=== PATIENT | male | born 1955 | race Caucasian/White ===

== ENCOUNTER 2019-01-11 18:59 | Inpatient (IN) | payer MEDICARE, OTHER ==
[~2019-01-11] VITALS: Ht 172.7 cm; Wt 72.6 kg
[2019-01-11 20:22] LABS: BASOPHILS # (AUTO) 0.1 /CMM (0.0-0.2); BASOPHILS % (AUTO) 1.1 % (0.0-2.0); EOSINOPHILS % (AUTO) 2.3 % (0.0-6.0); HEMATOCRIT 45 % (39-51); HEMOGLOBIN 15.8 g/dL (13.5-17.5); LYMPHOCYTES # (AUTO) 2.1 /CMM (0.8-4.8); LYMPHOCYTES % (AUTO) 28.4 % (20.0-44.0); MEAN CORPUSCULAR HGB CONC 35 g/dl (31.0-36.0); MEAN CORPUSCULAR VOLUME 85 fL (80-96); MONOCYTES # (AUTO) 0.5 /CMM (0.1-1.30); MONOCYTES % (AUTO) 6.5 % (2.0-12.0); NEUTROPHILS # (AUTO) 4.7 /CMM (1.8-8.9); NEUTROPHILS % (AUTO) 61.7 % (43.0-81.0); PLATELET COUNT (AUTO) 211 /CMM (150-450); RED BLOOD CELL COUNT(AUTO) 5.36 MIL/uL (4.5-6.0); WHITE BLOOD COUNT (AUTO) 7.6 K/uL (4.3-11.0)
[2019-01-11 20:29] LABS: APPEARANCE,URINE Clear (CLEAR); BILIRUBIN,URINE Negative (NEGATIVE); BLOOD, URINE Negative Ery/uL (NEGATIVE); COLOR,URINE Yellow (YELLOW); KETONES,URINE Negative (NEGATIVE); LEUKOCYTE ESTERASE ,URINE Negative (NEGATIVE); NITRITE, URINE Negative (NEGATIVE); PROTEIN,URINE Negative (NEGATIVE); UGLUCOSE Negative (NEGATIVE)
--- NOTE | 2019-01-11 20:35 | NUR ---
BIB PRIVATE AMBULANCE FROM HOME ON 5150 HOLD HERE FOR MEDICAL CLEARANCE FOR YELENA ADMISSION. PT ADMITS TO CLAIMS ON 5150 HOLD. DENIES SI/HI NOW. PT AAOX3, VSS. RR EVEN & UNLABORED. CALM & COOPERATIVE. PT SEEN & EVAL'D BY DR. DE LEON. FEDE @ BS & WILL CONT TO MONITOR.
[2019-01-11 20:50] LABS: ALANINE AMINOTRANSFERASE 22 U/L (12-78); ALBUMIN 4.1 g/dL (3.4-5.0); ALCOHOL, BLOOD < 3 mg/dL (0-0); ALKALINE PHOSPHATASE 101 U/L (46-116); ASPARTATE AMINOTRANSFERASE 16 U/L (15-37); BILIRUBIN,DIRECT 0.1 mg/dL (0.0-0.2); BILIRUBIN,TOTAL 0.5 mg/dL (0.2-1.0); CALCIUM, SERUM 9.3 mg/dL (8.5-10.1); CARBON DIOXIDE 27 mmol/L (21-32); CHLORIDE 101 mmol/L (98-107); CREATININE 0.9 mg/dL (0.6-1.3); GLUCOSE 122 mg/dL (74-106); POTASSIUM 3.5 mmol/L (3.5-5.1); SODIUM SERUM 137 mmol/L (136-145); TOTAL PROTEIN, SERUM 8.1 g/dL (6.4-8.2); UREA NITROGEN, BLOOD 16 mg/dL (7-18)
[2019-01-11 20:59] LABS: SALICYLATE < 2.8 mg/dL (2.8-20.0)
[2019-01-11 22:06] LABS: ACETAMINOPHEN 0 ug/ml (10-30)
--- NOTE | 2019-01-11 22:31 | NUR ---
REPORT CALLED TO [facility]. WILL TRANSPORT PT TO ROOM 216-A
[2019-01-11 23:00] VITALS: BP 156/83
[2019-01-11] MEDS ORDERED: MAG HYDROX/AL HYDROX/SIMETH 30 ML UDC PO PRN ×2 (23:30)
[2019-01-11] MEDS ORDERED: MAGNESIUM HYDROXIDE 30 ML UDC PO PRN ×2 (23:30)
[2019-01-11] MEDS ORDERED: BLOOD SUGAR DIAGNOSTIC 1 EACH STRIP IN ONE ×2 (23:30)
[2019-01-11] MEDS ORDERED: ACETAMINOPHEN 325 MG TABLET PO PRN ×2 (23:30)
[2019-01-11] MEDS: LORAZEPAM 0.5 MG TABLET PO PRN (23:51)
[2019-01-12] MEDS ORDERED: INSU3INS8 SQ (00:53)
[2019-01-12] MEDS ORDERED: DOCU-264 PO (00:53)
[2019-01-12] MEDS ORDERED: ARIP20TA4 PO (00:53)
[2019-01-12] MEDS ORDERED: LISI1TAB28 PO (00:53)
[2019-01-12] MEDS ORDERED: TRAZ-214 PO (00:53)
[2019-01-12] MEDS ORDERED: MIRT30TA7 PO (00:53)
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
--- NOTE | 2019-01-12 04:15 | NUR ---
CALLED [facility] AND SPOKE WITH LAVERNE MALLORY TO RECONCILE MEDS.
--- NOTE | 2019-01-12 04:47 | NUR ---
LAVERNE BURNHAM CAME TO UNIT AND ASSESSED PT. PT EXTERNAL MED HISTORY USED FOR MEDICATION RECONCILIATION AND LAVERNE BURNHAM NOTIFIED.
[2019-01-12] MEDS ORDERED: DEXTROSE 50%-WATER 50 ML DISP.SYRIN IV PRN (05:30)
[2019-01-12] MEDS ORDERED: DOCUSATE SODIUM 100 MG CAPSULE PO PRN (05:30)
[2019-01-12 07:43] LABS: ALBUMIN 3.5 g/dL (3.4-5.0); BILIRUBIN,TOTAL 0.7 mg/dL (0.2-1.0); CALCIUM, SERUM 8.7 mg/dL (8.5-10.1); CREATININE 0.8 mg/dL (0.6-1.3); POTASSIUM 3.7 mmol/L (3.5-5.1)
[2019-01-12 07:45] LABS: CHOLESTEROL 181 mg/dL (<200); HDL CHOLESTEROL 37 mg/dL (40-60); LDL 112 mg/dL (0-99); TRIGLYCERIDES 164 mg/dL (30-150)
[2019-01-12 08:00] VITALS: BP 107/52
[2019-01-12] MEDS: BLOOD SUGAR DIAGNOSTIC 1 EACH STRIP IN SCH ×4 (09:15→21:30)
[2019-01-12] MEDS: HYDROCHLOROTHIAZIDE 25 MG TABLET PO SCH (09:53)
[2019-01-12] MEDS: LISINOPRIL (20MG) 20 MG TABLET PO SCH (09:54)
[2019-01-12] MEDS: INSULIN REGULAR, HUMAN 100 UNIT/ML 3 ML VIAL SQ PRN ×3 (10:00→21:29)
[2019-01-12] MEDS: ESCITALOPRAM OXALATE (10 MG) 10 MG TABLET PO SCH (13:30)
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
[2019-01-12 16:00] VITALS: BP 127/73
--- NOTE | 2019-01-12 16:17 | NUR ---
Group Note: SW encouraged pt to participate in group therapy on 01/12/19 discussing social supports. Pt presented in his room on his bed and was unable to participate due to severe depression at this time. Pt is only albanian speaking as well and could not communicate very well with the SW.
--- NOTE | 2019-01-12 19:00 | NUR ---
CALLED DR. VIRAMONTES FOR THE CONSULT
[2019-01-12 20:10] VITALS: BP 105/71
[2019-01-12] MEDS: QUETIAPINE FUMARATE 25 MG TABLET PO SCH (21:30)
[2019-01-12] MEDS: ZOLPIDEM TARTRATE 5 MG TABLET PO PRN (21:30)
[2019-01-13] MEDS: INSULIN REGULAR, HUMAN 100 UNIT/ML 3 ML VIAL SQ PRN ×4 (07:37→21:21)
[2019-01-13] MEDS: BLOOD SUGAR DIAGNOSTIC 1 EACH STRIP IN SCH ×4 (07:40→21:24)
[2019-01-13 08:00] VITALS: BP 134/83
[2019-01-13] MEDS: HYDROCHLOROTHIAZIDE 25 MG TABLET PO SCH (08:35)
[2019-01-13] MEDS: ESCITALOPRAM OXALATE (10 MG) 10 MG TABLET PO SCH (08:36)
[2019-01-13] MEDS: LISINOPRIL (20MG) 20 MG TABLET PO SCH (08:37)
--- NOTE | 2019-01-13 09:19 | NUR ---
INITIAL DISCHARGE PLAN: Per daughter in law Nannette [phone], pt may need SNF placement as pt may not be able to return to the apartment as landlord wishes to evict family due to several complaints regarding pts behaviors. CHRISTY will help form a safe and proper discharge in collaboration with .
--- NOTE | 2019-01-13 09:52 | NUR ---
FAMILY CONTACT: SW received a call from pts daughter in law Nannette [phone] stating that family wishes for SNF placement short term. SW stated that she will inform psychiatrist and will begin referring pt once stable. Nannette agreed.
[2019-01-13 16:00] VITALS: BP 130/80
[2019-01-13 20:37] VITALS: BP 117/74
[2019-01-13 20:42] VITALS: BP 117/74
[2019-01-13] MEDS: QUETIAPINE FUMARATE 25 MG TABLET PO SCH (21:19)
[2019-01-14] MEDS: BLOOD SUGAR DIAGNOSTIC 1 EACH STRIP IN SCH ×4 (07:57→21:23)
[2019-01-14] MEDS: INSULIN REGULAR, HUMAN 100 UNIT/ML 3 ML VIAL SQ PRN ×3 (07:59→21:31)
[2019-01-14 08:00] VITALS: BP 115/56
[2019-01-14] MEDS: LISINOPRIL (20MG) 20 MG TABLET PO SCH (08:15)
[2019-01-14] MEDS: HYDROCHLOROTHIAZIDE 25 MG TABLET PO SCH (08:16)
[2019-01-14] MEDS: ESCITALOPRAM OXALATE (10 MG) 10 MG TABLET PO SCH (08:16)
[2019-01-14 16:00] VITALS: BP 118/66
[2019-01-14 20:00] VITALS: BP 126/76
[2019-01-14 20:14] VITALS: BP 126/76
[2019-01-14] MEDS: QUETIAPINE FUMARATE 25 MG TABLET PO SCH (21:24)
[2019-01-14] MEDS: ZOLPIDEM TARTRATE 5 MG TABLET PO PRN (21:25)
[2019-01-14] MEDS: INSULIN GLARGINE, 100 UNIT/ML CARTRIDGE SQ SCH (21:29)
[2019-01-15] MEDS: BLOOD SUGAR DIAGNOSTIC 1 EACH STRIP IN SCH ×4 (07:35→21:41)
[2019-01-15 08:00] VITALS: BP 108/72
[2019-01-15] MEDS: HYDROCHLOROTHIAZIDE 25 MG TABLET PO SCH (08:28)
[2019-01-15] MEDS: ESCITALOPRAM OXALATE (10 MG) 10 MG TABLET PO SCH (08:28)
[2019-01-15] MEDS: INSULIN REGULAR, HUMAN 100 UNIT/ML 3 ML VIAL SQ PRN ×4 (08:31→21:44)
[2019-01-15] MEDS: LISINOPRIL (20MG) 20 MG TABLET PO SCH (08:31)
[2019-01-15 16:00] VITALS: BP 146/73
[2019-01-15 20:35] VITALS: BP 130/76
[2019-01-15] MEDS: QUETIAPINE FUMARATE 25 MG TABLET PO SCH (21:34)
[2019-01-15] MEDS: INSULIN GLARGINE, 100 UNIT/ML CARTRIDGE SQ SCH (21:42)
[2019-01-16] MEDS: BLOOD SUGAR DIAGNOSTIC 1 EACH STRIP IN SCH ×4 (07:59→21:35)
[2019-01-16 08:00] VITALS: BP 128/74
[2019-01-16] MEDS: INSULIN REGULAR, HUMAN 100 UNIT/ML 3 ML VIAL SQ PRN ×3 (08:04→21:30)
[2019-01-16] MEDS: LISINOPRIL (20MG) 20 MG TABLET PO SCH (08:53)
[2019-01-16] MEDS: ESCITALOPRAM OXALATE (10 MG) 10 MG TABLET PO SCH (08:53)
[2019-01-16] MEDS: HYDROCHLOROTHIAZIDE 25 MG TABLET PO SCH (08:54)
--- NOTE | 2019-01-16 09:26 | NUR ---
FAMILY CONTACT: SW received a call from pts daughter in law Nannette [phone] stating that her and pts son fear that pt will want to be discharged to his sisters house which is not a safe plan as she states pt will not get better if discharged to his sisters house. Daughter in law states that her and pts son wish for pt to be discharged to a SNF. SW stated that pt will be discharged to a SNF as that is MD's recommendation and family's wish. Daughter in law agreed.
--- NOTE | 2019-01-16 15:48 | NUR ---
GROUP NOTE: SW encouraged pt to attend group on this present day discussing "discharge planning." Pt was laying in bed and stated he did not want to get up from bed as he had just laid down. SW provided intervention and discussed isolation and withdrawal, pt stated that he is eating in the activity room and socializing with other patients. SW discussed the importance of group milieu and pt stated he would attend tomorrow.
[2019-01-16 15:52] VITALS: BP 128/77
[2019-01-16 20:15] VITALS: BP 147/80
[2019-01-16] MEDS: QUETIAPINE FUMARATE 25 MG TABLET PO SCH (21:27)
[2019-01-16] MEDS: INSULIN GLARGINE, 100 UNIT/ML CARTRIDGE SQ SCH (21:30)
[2019-01-17] MEDS: BLOOD SUGAR DIAGNOSTIC 1 EACH STRIP IN SCH ×4 (07:51→21:14)
[2019-01-17 08:00] VITALS: BP 118/70
[2019-01-17] MEDS: INSULIN REGULAR, HUMAN 100 UNIT/ML 3 ML VIAL SQ PRN ×3 (08:04→21:25)
[2019-01-17] MEDS: LISINOPRIL (20MG) 20 MG TABLET PO SCH (08:07)
[2019-01-17] MEDS: HYDROCHLOROTHIAZIDE 25 MG TABLET PO SCH (08:07)
[2019-01-17] MEDS: ESCITALOPRAM OXALATE (10 MG) 10 MG TABLET PO SCH (08:14)
--- NOTE | 2019-01-17 08:39 | NUR ---
PC HEARING NOTIFICATION: CHRISTY contacted pts daughter in law Nannette [phone] to inform her pt has a probable cause hearing scheduled on this present day at 1530. Daughter agreed.
--- NOTE | 2019-01-17 10:12 | NUR ---
FAMILY CONTACT: CHRISTY contacted pts daughter in law Nannette [phone] to inform her that after discussing pts discharge plan with MD and pt, pt states that he does not want to be discharged to a SNF and that he wishes to be discharged to his sister Kristy's house. CHRISTY informed her that MD will not discharge pt to a SNF against his will as pt does not have a DPOA and is able to make decisions on his own. Daughter in law understood and stated that she would call CHRISTY back with Kristy's contact information. Daughter in law also stated that she wants CHRISTY to emphasize how important it is for Kristy to take pt to his doctor appointments as she states when pt was living with her she would often miss appointments because she would not take him. CHRISTY stated that she would contact Kristy to confirm she is able to care for pt properly. Daughter in law agreed.
[2019-01-17 16:00] VITALS: BP 136/83
[2019-01-17 20:27] VITALS: BP 138/86
[2019-01-17] MEDS: QUETIAPINE FUMARATE 25 MG TABLET PO SCH (21:14)
[2019-01-17] MEDS: INSULIN GLARGINE, 100 UNIT/ML CARTRIDGE SQ SCH (21:21)
[2019-01-17] MEDS: ZOLPIDEM TARTRATE 5 MG TABLET PO PRN (21:41)
[2019-01-18] MEDS: BLOOD SUGAR DIAGNOSTIC 1 EACH STRIP IN SCH ×4 (07:40→21:47)
[2019-01-18 08:00] VITALS: BP 126/78
[2019-01-18] MEDS: HYDROCHLOROTHIAZIDE 25 MG TABLET PO SCH (08:42)
[2019-01-18] MEDS: LISINOPRIL (20MG) 20 MG TABLET PO SCH (08:42)
[2019-01-18] MEDS: ESCITALOPRAM OXALATE (10 MG) 10 MG TABLET PO SCH (08:42)
[2019-01-18] MEDS: INSULIN REGULAR, HUMAN 100 UNIT/ML 3 ML VIAL SQ PRN ×3 (08:44→21:55)
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
[2019-01-18 16:00] VITALS: BP 132/77
[2019-01-18 20:18] VITALS: BP 135/74
[2019-01-18] MEDS: QUETIAPINE FUMARATE 25 MG TABLET PO SCH (21:42)
[2019-01-18] MEDS: ZOLPIDEM TARTRATE 5 MG TABLET PO PRN (21:47)
[2019-01-18] MEDS: INSULIN GLARGINE, 100 UNIT/ML CARTRIDGE SQ SCH (21:53)
--- NOTE | 2019-01-18 22:03 | NUR ---
line service supervisor notes Routine meds given as well as his sleep medication . blood sugar checked done 171, 3 units of regular insulin given and 5 units of lantus maria esther sq as ordered in different site. no signs of hypo glycemia noted. offered snacks but pt requested only juice. will continue monitoring.
[2019-01-19 08:00] VITALS: BP 105/70
--- NOTE | 2019-01-19 08:30 | NUR ---
FAMILY CONTACT: SW received a call from pts daughter in law Nannette [phone] stating that her and pts 2 sons met with pt yesterday and stated that pt agreed to go to a SNF short-term. SW stated that she will fax referrals to local SNF's and coordinate discharge for pt. SW informed her that pt will be discharged tomorrow Wednesday01/20/19. Daughter in law agreed.
[2019-01-19] MEDS: BLOOD SUGAR DIAGNOSTIC 1 EACH STRIP IN SCH ×4 (09:00→21:54)
[2019-01-19] MEDS: LISINOPRIL (20MG) 20 MG TABLET PO SCH (09:00)
[2019-01-19] MEDS: HYDROCHLOROTHIAZIDE 25 MG TABLET PO SCH (09:00)
[2019-01-19] MEDS: ESCITALOPRAM OXALATE (10 MG) 10 MG TABLET PO SCH (09:01)
[2019-01-19] MEDS: INSULIN REGULAR, HUMAN 100 UNIT/ML 3 ML VIAL SQ PRN ×4 (09:09→22:05)
--- NOTE | 2019-01-19 09:18 | NUR ---
SNF REFERRAL: CHRISTY faxed SNF referral to Meche, administrative project coordinator [facility] (SNF) [address] [facility] [address] F: [phone] and [facility] Address: [address] [place] [address] for review.
--- NOTE | 2019-01-19 10:30 | NUR ---
SNF: SW received a call from Josiane admissions representative at [facility] ([facility]) [address] [facility] [address] stating they could not accept pt due to the facility being in survey.
--- NOTE | 2019-01-19 10:33 | NUR ---
SNF: SW received a call from Susan, office coordinator at [facility] Address: [address], [place], [place] [address] stating pt has been denied due to the facility not having an appropriate bed for pt close to the nurses station.
--- NOTE | 2019-01-19 10:41 | NUR ---
SNF REFERRAL: CHRISTY faxed SNF referral to [facility] Address: [address] [place] [address] and [facility] Address: [address] [place] [address] for review.
--- NOTE | 2019-01-19 14:08 | NUR ---
SNF: SW received a call from Zee party coordinator at [facility] Address: [address], [place] [address] stating pt was not accepted due to DON not approving due to suicidal ideation.
--- NOTE | 2019-01-19 15:06 | NUR ---
SNF: SW received a call from Radha, policy service coordinator at [facility] Address: [address] [place] [address] stating pt has been accepted to the facility.
[2019-01-19 16:00] VITALS: BP 142/86
[2019-01-19] MEDS: METFORMIN 500 MG TABLET PO SCH (17:02)
[2019-01-19 20:40] VITALS: BP 130/72
[2019-01-19] MEDS: QUETIAPINE FUMARATE 25 MG TABLET PO SCH (21:51)
[2019-01-19] MEDS: ZOLPIDEM TARTRATE 5 MG TABLET PO PRN (21:54)
[2019-01-19] MEDS: INSULIN GLARGINE, 100 UNIT/ML CARTRIDGE SQ SCH (21:55)
--- NOTE | 2019-01-19 22:04 | NUR ---
RN GPS NOTES PATIENT REQUESTED FOR SLEEP AIDE, ADELITA GIVEN ORDERED, VS WNL, WILL CONTINUE TO MONITOR.
[2019-01-20] MEDS: BLOOD SUGAR DIAGNOSTIC 1 EACH STRIP IN SCH ×4 (07:27→22:02)
[2019-01-20 08:00] VITALS: BP 109/73
[2019-01-20] MEDS: ESCITALOPRAM OXALATE (10 MG) 10 MG TABLET PO SCH (08:19)
[2019-01-20] MEDS: METFORMIN 500 MG TABLET PO SCH ×2 (08:19→17:33)
[2019-01-20] MEDS: LISINOPRIL (20MG) 20 MG TABLET PO SCH (08:20)
[2019-01-20] MEDS: HYDROCHLOROTHIAZIDE 25 MG TABLET PO SCH (08:20)
--- NOTE | 2019-01-20 11:35 | NUR ---
SNF: SW received a call from Gisele, pharmacy care coordinator at [facility] Address: [address] [place] [address] stating DON has denied pts admissions due to his suicidal ideation. SW stated that pt no longer has suicidal ideation and that on the progress note is clearly states pt has denied for the past 4 days. SW sated she will refer pt elsewhere.
--- NOTE | 2019-01-20 11:37 | NUR ---
SNF REFERRAL: CHRISTY faxed SNF referral to Dana, admission coordinator [facility] Address: [address] [place] [address] for review.
--- NOTE | 2019-01-20 11:43 | NUR ---
FAMILY CONTACT: CHRISTY contacted pts daughter in law Nannette [phone] to inform her [facility] has denied pt due to suicidal ideation. CHRISTY informed her that 4 other SNF's in the [place] area have also denied pt for the same reason. CHRISTY informed her that a SNF referral has been faxed to [facility] and is waiting for acceptance to coordinate discharge. Daughter in law agreed.
[2019-01-20] MEDS: INSULIN REGULAR, HUMAN 100 UNIT/ML 3 ML VIAL SQ PRN ×2 (12:02→22:00)
--- NOTE | 2019-01-20 12:03 | NUR ---
DISCHARGE NOTE: Pt will be discharged at 1:00pm via [facility] to [facility] ([facility]) [address] [place] [address]. [place] [address] P: [phone]. Pts daughter in law Nannette [phone] has been notified and agreed with discharge plan. Pts mood is euthymic with congruent affect. Pt denied visual/auditory hallucinations and denied suicidal/homicidal ideation. Pt will be under the care of Psychiatrist: Dr. Nina Samuel [address] [place] [address] [address], [place] [address] [phone] and Resident Services Director: Dr Hoang Address: [address] [place] [address] [address], [place] [address] [phone]. The multidisciplinary exit care form was done, printed, signed, and given to the patient.
--- NOTE | 2019-01-20 12:03 | NUR ---
FAMILY CONTACT: SW contacted pts daughter in law Nannette [phone] and left a voicemail confirming pt will be discharged at 1:00pm to [facility] ([facility]) [id number] [place] [address]. [place] [address] P: [phone].
[2019-01-20 16:00] VITALS: BP 117/73
[2019-01-20] MEDS ORDERED: hydrALAZINE HCL 25 MG TABLET PO PRN (17:30)
[2019-01-20] MEDS: LORAZEPAM 0.5 MG TABLET PO PRN (17:33)
--- NOTE | 2019-01-20 17:34 | NUR ---
RN NOTE- PT TO BE DC AND AMBULANCE CREW TOOK VS. BP WAS 160/98. PT HAD AM ANTIHYPERTENSIVES HELD BECAUSE OF LOW BP. AMBULANCE CREW NOT TAKING PT TO SNF. CALLED DR MORALES WHO ORDERED HYDRALAZINE 25 MG PO Q6 PRN FOR SYSTOLIC BP > 160. COMPLYING. PT ANXIOUS ABOUT TRANSFER TO SNF. ATIVAN 1 MG PO GIVEN AT THIS TIME. WILL MONITOR PT AND VS
[2019-01-20] MEDS: QUETIAPINE FUMARATE 25 MG TABLET PO SCH (21:06)
[2019-01-20 21:07] VITALS: BP 129/78
[2019-01-20] MEDS: INSULIN GLARGINE, 100 UNIT/ML CARTRIDGE SQ SCH (22:01)
--- NOTE | 2019-01-20 22:19 | NUR ---
GPS RN NOTES: PT C/O FEELING CONSTIPATED. OFFERED MOM 30ML PO PRN ORDERED. PT AGREED AND TOLERATED MEDICATION WELL. CONTINUE TO MONITOR.
--- NOTE | 2019-01-21 00:45 | NUR ---
GPS RN NOTES: PATIENT IS A 63 YEAR OLD MALE DISCHARGED TO [facility] ([facility]) [address] [place] [address]. [place] [address] PHONE NUMBER . PATIENT IS IN STABLE CONDITION. VSS. NO ACUTE DISTRESS NOTED. NO COMPLAINTS. COMPLIANT WITH MEDICATION MANAGEMENT. COOPERATIVE WITH THE PLAN OF CARE. PSYCHIATRIC TREATMENT PLANS MET. MEDICAL TREATMENT PLANS DEFERRED FOR CONTINUAL MONITORING. [facility] AT THIS TIME OF DISCHARGE. PATIENT RESPECTFULLY DECLINED SKIN ASSESSMENT DUE TO FEELING EAGER TO LEAVE. EDUCATED PATIENT ABOUT AFTERCARE WITH A COPY PROVIDED. RETURNED PERSONAL BELONGINGS TO PATIENT. MEDICATION RECONCILED WITH ALONG PSYCHIATRIST DISCHARGE ORDERS. DISCHARGE PAPERWORK SIGNED. FOR FOLLOW UP WITH PSYCHIATRIST AND HORTICULTURE PROFESSOR WITHIN 1 WEEK. PATIENT LEFT [facility] GPS VIA AMBULANCE ACCOMPANIED BY 2 EMT'S.
== END 2019-01-21 00:45 | DRG 885 ==
LOC: ER 19:15 → GPS 22:37
PROVIDERS: ADMIT Psychiatry & Neurology Psychiatry; ATTEND Registered Nurse
DX: F33.3 Major depressive disorder, recurrent, severe with psychotic symptoms (principal); E11.65 Type 2 diabetes mellitus with hyperglycemia; F23 Brief psychotic disorder; R45.851 Suicidal ideations; F41.9 Anxiety disorder, unspecified; I10 Essential (primary) hypertension; E78.5 Hyperlipidemia, unspecified; Z85.46 Personal history of malignant neoplasm of prostate
CPT/HCPCS: 36415; 80048-TC; 80053-TC; 80061-TC; 80076-TC; 80305; 81000-TC; 82962-TC; 85025-TC; 87081-TC; G0480; J1815